=== PATIENT | male | born 1950 | race Caucasian/White ===

== ENCOUNTER 2017-08-30 10:56 | Inpatient (IN) | payer SELFPAY ==
--- NOTE | 2017-08-30 12:58 | CPEKG ---
Heart Rate: 71 RR Interval: 845 P-R Interval: 140 QRSD Interval: 80 QT Interval: 404 QTC Interval: 439 P Morrison: 59 QRS Morrison: 0 T Wave Morrison: 13 EKG Severity - NORMAL ECG - EKG Impression: SINUS RHYTHM Electronically Signed By: Nga Gonzalez 30-Aug-2017 20:44:38
[2017-08-30 13:25] LABS: PLATELET COUNT 235 10^3/uL (150-400)
--- NOTE | 2017-08-30 13:37 | PDCONSULT ---
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 He c/ o fatigue and issues with urination including incontinence at night. He went to see a PCP and was found to have a Cr of 3.0 about one month ago. This acutely jenni to >4 this week and he was sent in per Dr. Cruz of [facility]. He states that at first he thought he was just drinking too much caffeine, however he does not issues with frequent nocturia and difficulty emptying his bladder. No weight loss, non-smoker, denies h/o UTI's, renal stones, or other ROS. He does admit that his BP's have been high over the last week however he has not taken medications for this issue. He denies all NSAID use. Daughter present at bedside. NKDA MEDS: None ROS: Denies 10-point review except as above. PMH: None PSH: Traumatic finger injury requiring surgery several years ago. Social Hx: Lives at home with . Non-smoker, no ETOH or drug use. Family Hx: None, no renal disease. Objective: Temp Pulse Resp BP Pulse Ox 37.4 C 80 17 145/97 H 97 08/30/17 11:15 08/30/17 11:15 08/30/17 11:15 08/30/17 11:15 08/30/17 11:15 Physical exam: Gen: A+O, no distress HEENT: Non-traumatic, MMM Neck: Supple, no thyromegaly CV: RRR, no murmurs or rub RESP: CTA b/l EXT: No edema Skin: No rashes Neuro: Non-focal, moving all extremities Psych: Cooperative, normal affect Imaging: Reportedly mild hydronephrosis with >600ml urine on PVR per US at OSH. Labs: WBC 6.15 10^3/uL (3.80-9.50) 08/30/17 12:55 RBC 3.96 10^6/uL (4.40-6.38) L 08/30/17 12:55 Hgb 10.8 g/dL (13.7-17.5) L 08/30/17 12:55 Hct 32.2 % (40.0-51.0) L 08/30/17 12:55 MCV 81.3 fL (81.5-99.8) L 08/30/17 12:55 MCH 27.3 pg (27.9-34.1) L 08/30/17 12:55 MCHC 33.5 g/dL (32.4-36.7) 08/30/17 12:55 RDW 12.2 % (11.5-15.2) 08/30/17 12:55 Plt Count 235 10^3/uL (150-400) 08/30/17 12:55 MPV 10.1 fL (8.7-11.7) 08/30/17 12:55 Neut % (Auto) 74.4 % (39.3-74.2) H 08/30/17 12:55 Lymph % (Auto) 17.4 % (15.0-45.0) 08/30/17 12:55 [place] % (Auto) 6.3 % (4.5-13.0) 08/30/17 12:55 Eos % (Auto) 1.1 % (0.6-7.6) 08/30/17 12:55 Baso % (Auto) 0.5 % (0.3-1.7) 08/30/17 12:55 Nucleat RBC Rel Count 0.0 % (0.0-0.2) 08/30/17 12:55 Absolute Neuts (auto) 4.57 10^3/uL (1.70-6.50) 08/30/17 12:55 Absolute Lymphs (auto) 1.07 10^3/uL (1.00-3.00) 08/30/17 12:55 Absolute Monos (auto) 0.39 10^3/uL (0.30-0.80) 08/30/17 12:55 Absolute Eos (auto) 0.07 10^3/uL (0.03-0.40) 08/30/17 12:55 Absolute Basos (auto) 0.03 10^3/uL (0.02-0.10) 08/30/17 12:55 Absolute Nucleated RBC 0.00 10^3/uL (0-0.01) 08/30/17 12:55 Immature Gran % 0.3 % (0.0-1.1) 08/30/17 12:55 Immature Gran # 0.02 10^3/uL (0.00-0.10) 08/30/17 12:55 Sodium 141 mEq/L (135-145) 08/30/17 12:55 Potassium 4.9 mEq/L (3.3-5.0) 08/30/17 12:55 Chloride 104 mEq/L (97-110) 08/30/17 12:55 Carbon Dioxide 26 mEq/l (22-31) 08/30/17 12:55 Anion Gap 11 mEq/L (8-16) 08/30/17 12:55 BUN 56 mg/dL (7-23) H 08/30/17 12:55 Creatinine 4.1 mg/dL (0.7-1.3) H 08/30/17 12:55 Estimated GFR 15 08/30/17 12:55 Glucose 101 mg/dL (70-100) H 08/30/17 12:55 Calcium 8.7 mg/dL (8.5-10.4) 08/30/17 12:55 Total Bilirubin 0.5 mg/dL (0.1-1.4) 08/30/17 12:55 AST 26 IU/L (17-59) 08/30/17 12:55 ALT 35 IU/L (21-72) 08/30/17 12:55 Alkaline Phosphatase 114 IU/L (38-126) 08/30/17 12:55 Total Protein 6.8 g/dL (6.3-8.2) 08/30/17 12:55 Albumin 4.0 g/dL (3.5-5.0) 08/30/17 12:55 A/P: The patient is a 66 y/o M with minimal medical history who presents with MADELAINE on probable CKD 2/2 to obstruction most likely BPH. MADELAINE on CKD -patient reports having a normal Cr on labs 1-2 years ago -unclear how long obstruction has been going on, current Cr 4.0 -UA ordered, urine sodium, urine protein:cr -renal US imaging report pending -place bowles -sent PTH -urology consult -consider starting tamsulosin -monitor I/Os, daily labs -keep MAP>65 Hyperkalemia -should improve with bowles and urine output -renal diet -no acute indication for dialysis Anemia -may be 2/2 to longstanding CKD -check iron studies HTN -BP's in the 150's systolic -ordered hydralazine prn -no official diagnosis of HTN yet, however will most likely need CCB due to CKD Will continue to follow, please contact if ?'s #[phone].
[2017-08-30] MEDS ORDERED: ONDANSETRON DISINTEGRATING 4 MG TAB PO PRN (14:57)
[2017-08-30] MEDS ORDERED: ONDANSETRON 4 MG/2 ML VIAL IVP PRN (14:57)
[2017-08-30] MEDS ORDERED: ACETAMINOPHEN 325 MG TAB PO PRN (14:57)
[2017-08-30] MEDS ORDERED: NS 1,000 ML IV SCH (15:00)
--- NOTE | 2017-08-30 17:05 | PDGENHP ---
History and Physical History and Physical: CC: Urinary incontinence and new renal failure HISTORY: This generally very healthy man who lives in [place] the started noticing a few weeks ago nocturnal urinary incontinence. He has not particularly noticed a sensation of a full bladder, nor any discomfort passing urine, hematuria, or slowing of urine stream. However he has also noticed fatigue, loss of appetite, nausea, and ammonia on his breath. He has been eating normally. There has been no swelling, shortness of breath. For a few months now he has cut back dramatically on physical activity which normally includes quite [place] lot [place]. In the last 2 weeks he stopped working due to the fatigue He went a couple weeks ago to see a primary care physician who found high blood pressure and a creatinine of 3 with a history of normal creatinine 1 year ago. His prior blood pressures have all been normal. He was seen by commercial loan officer earlier today who found a creatinine of 4.4. Apparently a renal ultrasound was done at [facility] outpatient center today and showed initial urine volume of 1 L with spontaneous voiding to a volume of 650 postvoid. There is no past history of renal disease, prostate disease, stones or any other urologic disease. He denies any flank pain. He has had no rashes, joint pains or swelling, ocular or mucosal symptoms or other symptoms to suggest a vasculitis. His weight is stable. He has no fevers. There is no family history of any urologic or urinary disease. No family history of renal disease. 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, usually quite active MEDICATIONS: No medicines prior to this but he was prescribed yesterday some Flomax which is not yet picked up PHYSICAL EXAMINATION: Vital Signs: Some mild hypertension otherwise normal Transportation Museum Helper: Sinus rhythm Examination: General: alert, oriented, good mentation, relaxed Skin: warm, dry, good color, no rash HEENT: normal Neck: no mass or jvd Resps: relaxed Lungs: clear breath sounds Heart: regular, no murmur Abdomen: soft, nondistended, nontender, +BS, no mass Upper Extremities: normal Lower Extremities: no edema, warm No Bleeding or bruising Neurologic: normal speech/language, normal 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 representative, no focal weakness IV site: looks normal LABORATORY DATA: CBC showing a moderate microcytic anemia with hemoglobin of 10 with low red blood cell count indicating high likelihood of iron deficiency Chemistry panel here showing creatinine 4.1 with BUN in the 50s, normal potassium and CO2 A PTH was drawn and is 283, with elevated phosphate RADIOLOGY STUDIES: Again and outpatient ultrasound was done earlier today but the patient's daughter has the disc with her we are waiting for that come to the hospital so that we can review it 12 LEAD EKG: Done in the ER, my review of the tracing shows a normal 12 lead EKG ASSESSMENT: # RENAL FAILURE, acuity uncertain but certainly it is progressing quickly and given the likely etiology may be mostly acute, however the PTH levels could potentially indicate a more chronic scenario. Lack of acidosis would argue at least somewhat against much chronic change. * Likely due to urine retention, but cause as yet undetermined * Will certainly want to look at his ultrasound to make sure that he does not have any other sign of other renal disease # URINARY RETENTION, LIKELY CHRONIC, is the most likely cause of the renal failure but this remains to be determined. # HYPERPARATHYROIDISM is most likely due to his renal disease # MICROCYTIC ANEMIA WITH HIGH SUSPICION FOR IRON DEFICIENCY is also new finding , and likely unrelated to the above as he has had no hematuria * This will need further assessment as well At this time we are unable in the ER or with the nursing attempts on the [facility] floor to get a Wilson catheter in place and so will need to get a urologist to attempt placement. This will need to happen tonight due to his renal failure PLANS: -inpatient admission -Wilson placement by urologist home I will call now -follow closely for postobstructive diuresis and replace with IV fluids as necessary -follow recovery of renal function closely -when the ultrasound CD becomes available will look at that with radiology; any other measures based on the findings as indicated -he will probably need to be treated for secondary hyperparathyroidism but this should be reviewed with the nephrology consultants and will see how his renal function recovers with drainage -he will need assessment for the cause of his urinary retention, presumably this is prostatic disease, but will have Urology seeing him and they can do formal assessment -I will order iron studies, and he should at some point see a planning consultant for assessment of iron deficiency I have reviewed the patient's case in detail with Dr. Nga Gonzalez
--- NOTE | 2017-08-30 19:31 | PDMN ---
Medical Necessity Medical necessity: C/M review: Patient meets [place] [id number] Renal failure, acute: Acute and persistent renal failure - acuity uncertain bit it is progressing quickly and gioven the likely etiology, may be mostly acute, urinary retention, likely chronic, hyperparathyroidism likely due to renal disease, microcytic anemia eith high suspicion for iron deficiency - new finding, likely unrelated to above, BUN 56, Cr 4.1, PIH intact level 238.3, creat (PIH intact) 4.0, Phosph (PIH intact) 4.9, requiring Renal consult, planned urology consult for Wilson catheter placement (inability to place Wilson catheter by ED staff or nursing unit staff), IV NS 50 ml/hr. infusion, follow renal function closely. anticipates > 2 MN LOS for ongoing med nec for eval and TX of above.
[2017-08-30] MEDS: TAMSULOSIN HCL 0.4 MG CAP PO SCH (20:01)
[2017-08-30] MEDS: ZOLPIDEM TARTRATE 5 MG TAB PO PRN (21:16)
[2017-08-30] MEDS: HEPARIN 5,000 UNIT/0.5 ML INJ SC SCH (21:16)
--- NOTE | 2017-08-30 22:11 | EDPHY ---
H & P Stated Complaint: ?renal failure/fatigue Time Seen by Provider: 08/30/17 12:45 HPI/ROS: CHIEF COMPLAINT: Elevated creatinine HISTORY OF PRESENT ILLNESS: Patient referred to the emergency department by his head of marketing adometry. He tells me that he has been undergoing evaluation of his kidneys for the last few months. For 3 months he has been experiencing nighttime incontinence. More recently he developed a decreased appetite, nausea , and fatigue. He was referred to Dr. Barber of [facility] because of rising creatinine and he was seen by him yesterday. Blood work was performed and he was told that his creatinine was 4.4. He he had a creatinine of 3.3 on August 15. By his report, he had an initial the 1000 mL of urine in his bladder with 500 mL postvoid residual. He had an ultrasound of his kidneys done today. I do not have these results. No NSAID use. No hematuria. He denies dysuria. He has no history of diabetes. No history of ureterolithiasis. No history of hypertension. REVIEW OF SYSTEMS: A ten point review of systems was performed and is negative with the exception of the items mentioned in the HPI. Past medical history: Ankle pain Past surgical history: Ankle surgery Family history: Negative Social history: He lives in [place]. His daughter accompanies him today. He does not use tobacco products. No alcohol or illicit drugs. 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 General Appearance: Alert. Vital signs reviewed. Blood pressure 145/97. Eyes: Pupils equal and round, no conjunctival injection, no discharge. Anicteric. ENT, Mouth: Mucous membranes are moist, no oropharyngeal erythema or edema. Neck: No lymphadenopathy, supple. Respiratory: Lungs are clear to auscultation; no wheezes, rales, or rhonchi. Cardiovascular: Regular rate and rhythm; no murmur, rub, or gallop. Gastrointestinal: Abdomen is soft and nontender, no masses or organomegaly, bowel sounds normal. Skin: Warm and dry, no rashes on exposed skin, normal color. Back: Nontender to palpation over the thoracolumbar spine. No CVAT. Extremities: No lower extremity edema, no calf tenderness or swelling. Neurological: Alert and oriented. Moving all four extremities easily and equally. Psychiatric: Normal affect. - Personal History Current Tetanus/Diphtheria Vaccine: Yes - Medical/Surgical History Hx Asthma: No Hx Chronic Respiratory Disease: No Hx Diabetes: No Hx Cardiac Disease: No Hx Renal Disease: Yes Hx Cirrhosis: No Hx Alcoholism: No Hx HIV/AIDS: No Hx Splenectomy or Spleen Trauma: No Other PMH: denies - Social History Smoking Status: Never smoked Constitutional: Initial Vital Signs Temperature (C) 37.4 C 08/30/17 11:15 Heart Rate 80 08/30/17 11:15 Respiratory Rate 17 08/30/17 11:15 Blood Pressure 145/97 H 08/30/17 11:15 O2 Sat (%) 97 08/30/17 11:15 O2 Delivery Mode Room Air Allergies/Adverse Reactions: No Known Allergies Allergy (Verified 08/30/17 13:49) Home Medications: Medication Instructions Recorded NK [No Known Home Meds] 08/30/17 Medical Decision Making ED Course/Re-evaluation: Acute renal failure with rising creatinine. Creatinine in the department today is 4.1 with a BUN of 56. He is noted to be anemic with hemoglobin 10.8 hematocrit 32.2. According to his daughter he was recently diagnosed with iron deficiency. Normal potassium. His history sounds as if he has urinary retention. This might account for his renal failure. He was evaluated by Urology in the emergency department. PTH and other studies have been requested. Emergency department nursing staff was unable to pass a Wilson catheter. Blood pressure was elevated. He has no known history of hypertension. He has been stable in the emergency department. He is being admitted to the hospital for further evaluation and treatment. Differential Diagnosis: Considered a differential diagnosis of acute renal failure that includes but is not limited to infection, obstruction, chronic urinary retention, and hypertension. - Data Points Laboratory Results: Laboratory Results 08/30/17 12:55 08/30/17 12:55 08/30/17 08/30/17 08/30/17 13:45 12:55 12:55 WBC RBC Hgb Hct MCV MCH MCHC RDW Plt Count MPV Neut % (Auto) Lymph % (Auto) Cameron % (Auto) Eos % (Auto) Baso % (Auto) Nucleat RBC Rel Count Absolute Neuts (auto) Absolute Lymphs (auto) Absolute Monos (auto) Absolute Eos (auto) Absolute Basos (auto) Absolute Nucleated RBC Immature Gran % Immature Gran # Sodium 141 mEq/L mEq/L (135-145) Potassium 4.9 mEq/L mEq/L (3.3-5.0) Chloride 104 mEq/L mEq/L (97-110) Carbon Dioxide 26 mEq/l mEq/l (22-31) Anion Gap 11 mEq/L mEq/L (8-16) BUN 56 mg/dL H mg/dL (7-23) Creatinine 4.1 mg/dL H mg/dL (0.7-1.3) Estimated GFR 15 Glucose 101 mg/dL H mg/dL (70-100) Calcium 8.7 mg/dL mg/dL (8.5-10.4) Total Bilirubin 0.5 mg/dL mg/dL (0.1-1.4) AST 26 IU/L IU/L (17-59) ALT 35 IU/L IU/L (21-72) Alkaline Phosphatase 114 IU/L IU/L (38-126) Total Protein 6.8 g/dL g/dL (6.3-8.2) Albumin 4.0 g/dL g/dL (3.5-5.0) PTH Intact 238.3 pg/mL H pg/mL (10.8-79.4) Calcium (PTH Intact) 8.5 mg/dL mg/dL (8.5-10.4) Creat (PTH Intact) 4.0 mg/dL H mg/dL (0.7-1.3) Phosph (PTH Intact) 4.9 mg/dL H mg/dL (2.5-4.5) Ur Random Sodium 33 mEq/L mEq/L (30-90) 08/30/17 12:55 WBC 6.15 10^3/uL 10^3/uL (3.80-9.50) RBC 3.96 10^6/uL L 10^6/uL (4.40-6.38) Hgb 10.8 g/dL L g/dL (13.7-17.5) Hct 32.2 % L % (40.0-51.0) MCV 81.3 fL L fL (81.5-99.8) MCH 27.3 pg L pg (27.9-34.1) MCHC 33.5 g/dL g/dL (32.4-36.7) RDW 12.2 % % (11.5-15.2) Plt Count 235 10^3/uL 10^3/uL (150-400) MPV 10.1 fL fL (8.7-11.7) Neut % (Auto) 74.4 % H % (39.3-74.2) Lymph % (Auto) 17.4 % % (15.0-45.0) Cameron % (Auto) 6.3 % % (4.5-13.0) Eos % (Auto) 1.1 % % (0.6-7.6) Baso % (Auto) 0.5 % % (0.3-1.7) Nucleat RBC Rel Count 0.0 % % (0.0-0.2) Absolute Neuts (auto) 4.57 10^3/uL 10^3/uL (1.70-6.50) Absolute Lymphs (auto) 1.07 10^3/uL 10^3/uL (1.00-3.00) Absolute Monos (auto) 0.39 10^3/uL 10^3/uL (0.30-0.80) Absolute Eos (auto) 0.07 10^3/uL 10^3/uL (0.03-0.40) Absolute Basos (auto) 0.03 10^3/uL 10^3/uL (0.02-0.10) Absolute Nucleated RBC 0.00 10^3/uL 10^3/uL (0-0.01) Immature Gran % 0.3 % % (0.0-1.1) Immature Gran # 0.02 10^3/uL 10^3/uL (0.00-0.10) Sodium Potassium Chloride Carbon Dioxide Anion Gap BUN Creatinine Estimated GFR Glucose Calcium Total Bilirubin AST ALT Alkaline Phosphatase Total Protein Albumin PTH Intact Calcium (PTH Intact) Creat (PTH Intact) Phosph (PTH Intact) Ur Random Sodium Medications Given: Heparin Sodium (Porcine) (Heparin Sc Injection) 5,000 unit SC Q8 VERONICA Stop: 02/26/18 21:59 Last Admin: 08/30/17 21:16 Dose: 5,000 unit Sodium Chloride (Ns) 1,000 mls @ 50 mls/hr IV CONT VERONICA Stop: 02/26/18 14:59 Last Admin: 08/30/17 20:02 Dose: 1,000 mls Tamsulosin HCl (Flomax) 0.4 mg PO DAILY VERONICA Stop: 02/26/18 17:14 Last Admin: 08/30/17 20:01 Dose: 0.4 mg Zolpidem Tartrate (Ambien) 5 - 10 mg PO HS PRN PRN Reason: Sleep/Insomnia, use 1st Stop: 02/26/18 14:56 Last Admin: 08/30/17 21:16 Dose: 10 mg Departure - Departure Disposition: [facility] Inpatient Acute Clinical Impression: Acute renal failure Qualifiers: Acute renal failure type: unspecified Qualified Code(s): N17.9 - Acute kidney failure, unspecified Condition: Good
[2017-08-31] MEDS: HEPARIN 5,000 UNIT/0.5 ML INJ SC SCH ×3 (05:09→21:04)
--- NOTE | 2017-08-31 07:20 | SOAPPROG ---
SOAP Progress Note Assessment/Plan: Assessment: #Non-oliguric MADELAINE- obstructive uropathy -bilateral hydro on u/s, suspected BPH. Will repeat u/s tomorrow to ensure decompressed and that obstruction not higher up. -Cr was 3 a month ago, 4.1 on admit-> now 3.5 -unclear where Cr will settle out given long duration of obstruction (suspect he does have some degree of CKD) -urology to see, bowles in, started tamsulosin -continue IVF-- I will increase rate to 100 cc/ hour -has some bloody urine-- monitor closely as may need continuous bladder irrigation if worsens #anemia -may have some CKD component -iron stores pending #hyperkalemia -improved with bowles -keep on renal diet for now #MBD of CKD -PTH high- expected with CKD--- will likely start calcitriol soon -phos at goal- not on binder I discussed with Dr. Stephen I am compensation coordinator for weekend Cleopatra Marquez MD [facility] pager [phone] 08/31/17 09:50 Subjective: Feels better today- urine bloody but no large clots. Feels weak but no sob, vomiting, cp. Discussed need for close urology f/u, continued bowles. IVF ongoing. Objective: Vital Signs Temp Pulse Resp BP Pulse Ox 36.5 C 73 16 149/99 H 97 08/31/17 04:49 08/31/17 04:49 08/31/17 04:49 08/31/17 04:49 08/31/17 04:49 Laboratory Results 08/31/17 04:42 08/30/17 08/31/17 09/01/17 05:59 05:59 05:59 Intake Total 550 Output Total 4900 Balance -4350 Physical Exam - Physical Exam General Appearance: alert, no apparent distress EENT: other (mmm) Neck: supple Respiratory: lungs clear Cardiac/Chest: regular rate, rhythm, other (no rub) Abdomen: non-tender, soft Male Genitalia: other (bowles blood tinged urine, small clots) Skin: warm/dry Extremities: other (no edema) Neuro/Psych: alert, oriented x 3 ICD10 Worksheet Patient Problems: Problems Problem Status Onset Acute renal failure Acute
[2017-08-31] MEDS: TAMSULOSIN HCL 0.4 MG CAP PO SCH (09:01)
[2017-08-31] MEDS: traMADol 50 MG TAB PO PRN ×2 (10:12→19:19)
--- NOTE | 2017-08-31 12:56 | SOAPPROG ---
SOAP Progress Note Assessment/Plan: Assessment: Urinary retention - s/p bowles Gross hematuria- likely due to compression. Mild, resolving ARF/CRI improved Plan: Hand irrigate bowles PRN. No need for CBI at this time. Will need outpatient urodynamics to see if bladder still functions Keep bowles indefinitely. 08/31/17 12:54 Subjective: Feels weak and tired. no pain. no sob. No nausea or vomiting Objective: Vital Signs Temp Pulse Resp BP Pulse Ox 36.7 C 93 16 135/97 H 94 08/31/17 12:31 08/31/17 12:31 08/31/17 12:31 08/31/17 12:31 08/31/17 12:31 Laboratory Results 08/31/17 04:42 08/30/17 08/31/17 09/01/17 05:59 05:59 05:59 Intake Total 550 1000 Output Total 4900 1050 Balance -4350 -50 Physical Exam - Physical Exam General Appearance: alert, no apparent distress Respiratory: No respiratory distress Male Genitalia: other (bowles in place with pink urine, small clots) Skin: normal color, warm/dry Extremities: non-tender Neuro/Psych: alert, normal mood/affect, oriented x 3 ICD10 Worksheet Patient Problems: Problems Problem Status Onset Acute renal failure Acute
--- NOTE | 2017-08-31 13:55 | HOSPPROG ---
Hospitalist Progress Note Assessment/Plan: The patient is a a 66-year-old male who was admitted for postobstructive uropathy causing bilateral hydronephrosis and acute kidney injury. ASSESSMENT/PLAN: MADELAINE, likely on CKD unk stage Post obstructive uropathy, likely 2/2 to BPH - s/p Wilson catheter placement B/l hydronephrosis Microcytic anemia, likely secondary to CKD Hyperparathyroidism, likely secondary to CKD -maintain Wilson Cath. -Continue to monitor I/O. -Recheck renal function in AM. -Check iron panel/ferritin in AM. -Bladder scan in AM to ensure resolution of bladder outlet obstruction -discussed case with right of way clearer Dr. Lim and urologist Dr. Holder. -patient will need outpatient follow-up with Nephrology and with Urology. He will likely be sent home with Wilson catheter. He will need education from nursing on how to care for his catheter. VTE prophylaxis: None needed. Ambulatory. Code Status: Full code Status: Inpatient for greater than 2 midnight stay. Disposition: Med surg with discharge anticipated tomorrow This patient is new to me. Reviewed patient's chart/records for this visit. ____ Subjective: Patient feels better today. He has some tenderness/pain and bladder area. His Wilson catheter continues to drain bloody urine. He feels generally weak and tired. Objective: Vital Signs Temp Pulse Resp BP Pulse Ox 36.7 C 93 16 135/97 H 94 08/31/17 12:31 08/31/17 12:31 08/31/17 12:31 08/31/17 12:31 08/31/17 12:31 Laboratory Results 08/31/17 04:42 08/30/17 08/31/17 09/01/17 05:59 05:59 05:59 Intake Total 550 1000 Output Total 4900 1050 Balance -4350 -50 Physical Exam: General: The patient is a male who is alert and in no acute distress. HEENT: normocephalic, extraocular movements intact, conjunctivae clear. Mucous membranes moist. Neck: trachea midline, no visible masses. Abd: soft and nondistended. Mild tenderness suprapubic area. Musculoskeletal: Normal muscle tone/bulk. Neuro: cranial nerves II XII grossly intact. Intact gross motor and sensory function. Psych: Appropriate mood and appropriate affect. Skin: No pallor. No petechiae. Heme/lymph: No peripheral edema at bilateral lower leg. : Wilson catheter in place. Draining deep red colored urine. Labs/Imaging/Other Tests: Personally reviewed/interpreted. ICD10 Worksheet Patient Problems: Problems Problem Status Onset Acute renal failure Acute
[2017-08-31] MEDS ORDERED: METOPROLOL TARTRATE 5 MG/5 ML INJ IVP ONE (16:45)
--- NOTE | 2017-08-31 17:58 | GCON ---
[f rep st] CONSULTATION DATE OF CONSULTATION: 08/30/2017 REQUESTING PHYSICIAN: Hospitalist services. REASON FOR REQUEST: Urinary retention, unable to place a Wilson. HISTORY OF PRESENT ILLNESS: Mr. Sandoval is a 66-year-old gentleman, who lives in the [facility], who was noted to have an increase of his creatinine. He states that he has also had a several-month history of feeling fatigued, somewhat nauseous, and just not quite right. He also states that he cortez s been having nocturnal enuresis, slow stream, going frequently, and not always completely emptying h is bladder. An ultrasound was obtained, which demonstrated bilateral hydronephrosis and significant postvoid residual. The patient was noted to have a creatinine of 4.4, and he therefore was referred for admission. Multiple attempts at placing a Wilson catheter were unsuccessful. Reasons for this ar e not clear. The patient denies any prior history of prostate disease. No history of prostate surge ry. No history of radiation or any other risk factors that would make it difficult to place a Wilson. PAST MEDICAL HISTORY: Ankle injury. PAST SURGICAL HISTORY: 1. Ankle surgery. 2. Finger surgery. FAMILY HISTORY: Reviewed and is unremarkable. SOCIAL HISTORY: Reviewed. No tobacco, alcohol, or drug abuse. HOME MEDICATIONS: None. REVIEW OF SYSTEMS: Otherwise negative. PHYSICAL EXAMINATION: VITAL SIGNS: He is afebrile, with stable vital signs. GENERAL: Alert, orien magdalena x4, in no apparent distress. HEENT: Head is normocephalic, atraumatic. Eyes, ears, nose, and t hroat are within normal limits. NECK: Supple, with midline trachea. RESPIRATORY: He has no increa sed respiratory effort. HEART: Regular. ABDOMEN: Soft, protuberant, nontender, nondistended. Malik dder is palpable just below the umbilicus. GENITOURINARY: Genital examination reveals normal phallu s and bilateral descended testes. EXTREMITIES: No clubbing, cyanosis, or edema. LABORATORY VALUES: Reviewed and summarized in the chart. IMAGING STUDIES: Report from ultrasound was reviewed. IMPRESSION: 1. Urinary retention, likely secondary to BPH, possible neurogenic bladder. 2. Acute renal failure, likely secondary to the above. 3. Bilateral hydronephrosis, likely secondary to outlet obstruction. 4. Inability to place Wilson catheter. PLAN: I placed a Wilson catheter at the bedside using a 16-Zambian coude catheter. This was complicat ed by the fact that he has had multiple attempts. There were, however, no indications that he had so me sort of stricture, bladder neck contracture, etc. He had over a liter of clear urine output. I mey styles discussed with him at length the followup necessary once his kidney has recovered as much as it p ossibly will. This would include urodynamic studies as well as cystoscopy in anticipation of possibl e TURP; however, this would not be indicated should his bladder not be functional, as it is unlikely to be successful. I would not recommend any further intervention urologically at this time, other th an starting tamsulosin, which has already been done; however, in my experience, more often than not, these folks need surgery eventually. This should be deferred until he is completely resolved and can have a thorough outpatient workup as above. /[id number]/MODL
[2017-08-31] MEDS: amLODIPine BESYLATE 5 MG TAB PO SCH (18:09)
[2017-08-31] MEDS: NS 1,000 ML IV SCH (18:09)
--- NOTE | 2017-08-31 19:22 | ASMTCMCOM ---
CM Note CM Note Notes: Reviewed chart, spoke with Dr. Stephen and TERESA Talbert regarding discharge plan of care, pt's progress. Pt admitted for acute renal failure and urinary retention. No remarkable history. 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 Per Dr. Stephen, pt will likely discharge home with a bowles catheter. Other discharge needs remain unclear at this time. CM will continue to follow. Current Discharge Plan: To be determined Date Signed: 08/31/2017 07:21 PM Electronically Signed By:Kyara Noguera RN
[2017-08-31] MEDS: ZOLPIDEM TARTRATE 5 MG TAB PO PRN (21:04)
[2017-09-01] MEDS: NS 1,000 ML IV SCH ×2 (05:06→14:44)
[2017-09-01] MEDS: HEPARIN 5,000 UNIT/0.5 ML INJ SC SCH ×3 (05:06→22:00)
--- NOTE | 2017-09-01 07:17 | SOAPPROG ---
SOAP Progress Note Assessment/Plan: Assessment: #Non-oliguric MADELAINE- obstructive uropathy -bilateral hydro on u/s, suspected BPH. Repeat u/s shows improved hydro (still mild) with thickened bladder wall as expected with BPH. -Cr was 3 a month ago, 4.1 on admit-> now 2.8 -unclear where Cr will settle out given long duration of obstruction (suspect he does have some degree of CKD) -urology following- bowles in, started tamsulosin -bloody urine- still a bit more than I would like before d/c him given risk clot --- continue IVF and monitoring. I don't think needs CBI at this point but needs continued monitoring and I think this needs to improve more before d/c him. -discussed need for urology and renal f/u as outpt- he lives in [place] and wants to come here for f/u. Will need labs later in week (can get locally and fax to us). Will arrange clinic f/u with us. #anemia -may have some CKD component -iron stores adequate -no need for Epo as this point #hyperkalemia -improved with bowles -keep on renal diet for now-- can liberalize doon #MBD of CKD -PTH high- expected with CKD--- will likely start calcitriol soon -phos at goal- not on binder I discussed with Dr. Stephen I am intelligence applications for weekend Cleopatra Marquez MD [facility] pager [phone] 09/01/17 08:56 Subjective: Feeling better, appetite improved today and wants to eat breakfast. No vomiting , sob. Urine still bloody but no large clots noted. Objective: Vital Signs Temp Pulse Resp BP Pulse Ox 37.3 C 81 16 164/104 H 95 09/01/17 05:01 09/01/17 05:01 09/01/17 05:01 09/01/17 05:01 09/01/17 05:01 Laboratory Results 09/01/17 04:35 08/31/17 09/01/17 09/02/17 05:59 05:59 05:59 Intake Total 550 4071 Output Total 4900 5765 Balance -2070 -9390 Physical Exam - Physical Exam General Appearance: alert, no apparent distress, other (looks better today) EENT: other (mmm) Cardiac/Chest: regular rate, rhythm Male Genitalia: other (bowles with bloody urine, no large clots in bag) Skin: warm/dry Extremities: other (no edema) Neuro/Psych: alert, oriented x 3 ICD10 Worksheet Patient Problems: Problems Problem Status Onset Acute renal failure Acute
--- NOTE | 2017-09-01 09:24 | HOSPPROG ---
Hospitalist Progress Note Assessment/Plan: The patient is a a 66-year-old male who was admitted for postobstructive uropathy causing bilateral hydronephrosis and acute kidney injury. ASSESSMENT/PLAN: MADELAINE, likely on CKD unk stage - improving Post obstructive uropathy, likely 2/2 to BPH - s/p Wilson catheter placement Hematuria, 2/2 Wilson insertion trauma B/l hydronephrosis, improving Microcytic anemia Hyperparathyroidism, likely secondary to CKD -maintain Wilson Cath. -Continue to monitor I/O. -Recheck renal function in AM. -Pt does not appear to have overt iron deficiency. -discussed case with hand stamper Dr. Lim. -patient will need outpatient follow-up with Nephrology and with Urology. He will likely be sent home with Wilson catheter. He will need education from nursing on how to care for his catheter. VTE prophylaxis: None needed. Ambulatory. Code Status: Full code Status: Inpatient for greater than 2 midnight stay. Disposition: Med surg with discharge anticipated tomorrow ____ Subjective: Pt feels ok today. C/o body aches from uncomfortable hospital bed. He has been ambulating. Tramadol is controlling his pain. Objective: Vital Signs Temp Pulse Resp BP Pulse Ox 37.1 C 89 14 142/93 H 94 09/01/17 08:00 09/01/17 08:00 09/01/17 08:00 09/01/17 08:00 09/01/17 08:00 Laboratory Results 09/01/17 04:35 08/31/17 09/01/17 09/02/17 05:59 05:59 05:59 Intake Total 550 4071 250 Output Total 4900 5775 Balance -4350 -1704 250 General: The patient is a male who is alert and in no acute distress. HEENT: normocephalic, extraocular movements intact, conjunctivae clear, no lesions on face. Nares and oral mucosa pink and moist. Neck: trachea midline, no visible masses, no external lesions. Resp: unlabored breathing. Abd: soft and nondistended. Musculoskeletal: Normal muscle tone bulk. Neuro: cranial nerves II XII grossly intact. Intact gross motor and sensory function. Psych: appropriate mood/affect. Skin: no pallor. : No suprapubic tenderness. +Wilson catheter noted with red colored urine draining. No VA tenderness. Renal US - persistent but improved b/l hydronephrosis. - Pending Discharge Pending Discharge Within 24 Hours: Yes Pending Discharge Date: 09/02/17 Pending Discharge Time: 11:00 ICD10 Worksheet Patient Problems: Problems Problem Status Onset Acute renal failure Acute
[2017-09-01] MEDS: amLODIPine BESYLATE 5 MG TAB PO SCH (09:40)
[2017-09-01] MEDS: TAMSULOSIN HCL 0.4 MG CAP PO SCH (09:41)
[2017-09-01] MEDS: traMADol 50 MG TAB PO PRN ×2 (09:41→17:56)
[2017-09-01] MEDS ORDERED: METOPROLOL TARTRATE 5 MG/5 ML INJ IVP PRN (10:44)
[2017-09-01] MEDS: LABETALOL HCL 5 MG/ML 20 ML MDV IVP PRN (13:42)
[2017-09-01] MEDS: ZOLPIDEM TARTRATE 5 MG TAB PO PRN (22:01)
[2017-09-02] MEDS: HEPARIN 5,000 UNIT/0.5 ML INJ SC SCH ×2 (05:19→15:04)
[2017-09-02] MEDS: TAMSULOSIN HCL 0.4 MG CAP PO SCH (09:36)
[2017-09-02] MEDS: amLODIPine BESYLATE 5 MG TAB PO SCH (09:40)
[2017-09-02] MEDS: NS 1,000 ML IV SCH ×2 (11:13→20:44)
[2017-09-02] MEDS: traMADol 50 MG TAB PO PRN ×2 (11:26→20:53)
[2017-09-02] MEDS: LABETALOL HCL 5 MG/ML 20 ML MDV IVP PRN (11:27)
--- NOTE | 2017-09-02 15:46 | SOAPPROG ---
SOAP Progress Note Assessment/Plan: Assessment: #Non-oliguric MADELAINE- obstructive uropathy -bilateral hydro on u/s, suspected BPH. Repeat u/s shows improved hydro (still mild) with thickened bladder wall as expected with BPH. -Cr was 3 a month ago, 4.1 on admit-> now 2.4 -unclear where Cr will settle out given long duration of obstruction (suspect he does have some degree of CKD) -urology following- bowles in, started tamsulosin -bloody urine-- still bloody today but improved, no large clots noted -he is requesting to stay tonight as not feeling quite strong enough, notes some pain in prostate/bladder. -discussed need for urology and renal f/u as outpt- he lives in [place] and wants to come here for f/u. Will need labs later in week (can get locally and fax to us vs here at [facility]). Will arrange clinic f/u with us- appears insurance may be issue and I discussed with Dr. Stephen that we have financial assistance paperwork he can fill out and that I still need to see him. I have given him my card/contact info. #anemia -may have some CKD component -iron stores adequate -no need for Epo as this point #hyperkalemia -improved with bowles, IVF #HTN -he reports BP not checked for a few years prior to admit so unclear where baseline was-- no history of HTN -started amlodipine, can add in doxazosin as well. Ok to allow to run a bit higher during MADELAINE recovery phase- goal 120s-150s for now and we can titrate meds further as outpt #MBD of CKD -PTH high- expected with CKD--- will likely start calcitriol soon -phos at goal- not on binder I discussed with Dr. Stephen I am immigration lawyer for weekend Cleopatra Marquez MD [facility] pager [phone] 09/02/17 15:48 Subjective: Feels tired this afternoon. BP running 120s-160s-- notes no history of HTN but has not checked BP in a few years prior to admit. Urine still bloody but improving, no large clots. Some spasms in bladder/rectum. Ate ok earlier today. Objective: Vital Signs Temp Pulse Resp BP Pulse Ox 36.9 C 88 17 128/72 H 96 09/02/17 15:28 09/02/17 15:28 09/02/17 15:28 09/02/17 15:28 09/02/17 15:28 Laboratory Results 09/02/17 04:26 09/01/17 09/02/17 09/03/17 05:59 05:59 05:59 Intake Total 4078 6311 570 Output Total 3708 6102 1000 [facility] -8684 -1543 -430 Physical Exam - Physical Exam General Appearance: alert, no apparent distress EENT: pharynx normal Neck: supple Respiratory: lungs clear Cardiac/Chest: regular rate, rhythm, other Male Genitalia: other (bowles bloody urine but no large clots, clearing some) Skin: warm/dry Extremities: other (no edema) Neuro/Psych: alert, normal mood/affect, oriented x 3 ICD10 Worksheet Patient Problems: Problems Problem Status Onset Acute renal failure Acute
--- NOTE | 2017-09-02 16:38 | ASMTCMCOM ---
CM Note CM Note Notes: Spoke with pt's nurse regarding d/c needs. Pt is struggling with Wilson issues and still has blood in his urine. D/C needs unclear at this time. CM will follow up tomorrow. Date Signed: 09/02/2017 04:37 PM Electronically Signed By:LEONIE Vora
--- NOTE | 2017-09-02 16:51 | HOSPPROG ---
Hospitalist Progress Note Assessment/Plan: The patient is a a 66-year-old male from [place] who was admitted for postobstructive uropathy causing bilateral hydronephrosis and acute kidney injury. ASSESSMENT/PLAN: MADELAINE, likely on CKD unk stage - improving Post obstructive uropathy, likely 2/2 to BPH - s/p Wilson catheter placement Hematuria, 2/2 Wilson insertion trauma- improving slowly B/l hydronephrosis, improving Microcytic anemia Hyperparathyroidism, likely secondary to CKD -started amlodipine earlier in admission. Adding low dose terazosin. Warned pt about potential AE of orthostatic hypotension. Dose may be titrated up in future. -maintain Wilson Cath. -Continue to monitor I/O. -Recheck renal function in AM. -Pt does not appear to have overt iron deficiency. -discussed case with chief of production Dr. Lim. She would like for him to get repeat labs in about 1 week to ensure that Cr is improving. She agrees to manage BP if needed. -patient will need outpatient follow-up with Nephrology and with Urology. He will be sent home with Wilson catheter. He will need education from nursing on how to care for his catheter. -D/w Urologist Dr. Holder - instructed pt to call tomorrow make an appt w/ him at [facility] for this . VTE prophylaxis: None needed. Ambulatory. Code Status: Full code Status: Inpatient for greater than 2 midnight stay. Disposition: Med surg with discharge anticipated tomorrow. Patient plans to stay w/ his son in [place] and FU w/ specialists mentioned above. ____ Subjective: Today pt felt well in the AM but he was feeling worse in the afternoon. +body aches, increased fatigue. He is a bit nervous about having to leave w/ a Wilson catheter. Objective: Vital Signs Temp Pulse Resp BP Pulse Ox 36.9 C 88 17 128/72 H 96 09/02/17 15:28 09/02/17 15:28 09/02/17 15:28 09/02/17 15:28 09/02/17 15:28 Laboratory Results 09/02/17 04:26 09/01/17 09/02/17 09/03/17 05:59 05:59 05:59 Intake Total 4074 8593 570 Output Total 3537 3372 1000 Balance -1704 -1543 -430 General: The patient is a male who is alert and in no acute distress. HEENT: normocephalic, extraocular movements intact, conjunctivae clear, no lesions on face. Nares and oral mucosa pink and moist. Neck: trachea midline, no visible masses, no external lesions. Resp: unlabored breathing. Abd: soft and nondistended. Musculoskeletal: Normal gait. Neuro: cranial nerves II XII grossly intact. Intact gross motor and sensory function. Psych: appropriate mood/affect. Skin: no pallor. : Wilson catheter in place, draining red urine that appears a little more clear today. ICD10 Worksheet Patient Problems: Problems Problem Status Onset Acute renal failure Acute
[2017-09-02] MEDS: ZOLPIDEM TARTRATE 5 MG TAB PO PRN (20:53)
[2017-09-02] MEDS ORDERED: TERAZOSIN HCL 1 MG CAP PO SCH (21:00)
[2017-09-03] MEDS: NS 1,000 ML IV SCH (06:20)
[2017-09-03] MEDS: TAMSULOSIN HCL 0.4 MG CAP PO SCH (10:11)
[2017-09-03] MEDS: amLODIPine BESYLATE 5 MG TAB PO SCH (10:12)
--- NOTE | 2017-09-03 11:25 | SOAPPROG ---
SOAP Progress Note Assessment/Plan: Assessment: 66 y/o M with obstructive uropathy. #Non-oliguric MADELAINE- obstructive uropathy -bilateral hydro on u/s, suspected BPH. Repeat u/s shows improved hydro (still mild) with thickened bladder wall as expected with BPH. -Cr was 3 a month ago, 4.1 on admit-> now 2.1 -likely has some CKD and unclear baseline Cr -urology following- bowles in, started tamsulosin will obtain outpt f/u -renal f/u as outpt, working with case management #anemia -may have some CKD component -iron stores adequate #hyperkalemia -improved with bowles, IVF #HTN -still elevated on amlodipine, currently getting IV labetalol -may d/c on 10mg amlodipine for goal <140/90 -will titrate further as outpt #MBD of CKD -PTH high- expected with CKD--- will likely start calcitriol outpt -phos at goal- not on binder 09/03/17 11:24 Subjective: Ready for discharge. Bowles in place and improving. Objective: Vital Signs Temp Pulse Resp BP Pulse Ox 36.7 C 88 16 146/102 H 95 09/03/17 08:44 09/03/17 08:44 09/03/17 08:44 09/03/17 10:12 09/03/17 08:44 Laboratory Results 09/03/17 04:00 09/02/17 09/03/17 09/04/17 05:59 05:59 05:59 Intake Total 4607 670 1100 Output Total 6150 6150 950 Balance -1543 -7767 150 Physical Exam - Physical Exam General Appearance: WD/WN, alert, no apparent distress EENT: PERRL/EOMI Neck: non-tender, full range of motion, supple Respiratory: lungs clear, normal breath sounds Cardiac/Chest: normal peripheral pulses, regular rate, rhythm Abdomen: normal bowel sounds, non-tender, soft Back: Normal inspection Skin: normal color Extremities: normal range of motion, non-tender Neuro/Psych: alert, normal mood/affect, oriented x 3 ICD10 Worksheet Patient Problems: Problems Problem Status Onset Acute renal failure Acute
--- NOTE | 2017-09-03 12:09 | PDDCSUM ---
Discharge Summary Discharge Summary: DISCHARGE SUMMARY FOLLOW-UP ITEMS: Follow-up creatinine BUN and lytes next week at [facility] DATE OF ADMISSION: 08/30/2017 DATE OF DISCHARGE: 09/03/2017 DISCHARGE DIAGNOSES: 1. Nonoliguric acute kidney injury 2. Suspected chronic kidney disease stage 3 3. Acute obstructive uropathy with BPH and acute hydronephrosis 4. Anemia of chronic kidney disease 5. Acute hyperkalemia 6. Chronic hypertension 7. Chronic left ankle pain CONSULTATIONS: Nephrology, Urology PROCEDURES / IMAGING: Abdominal ultrasound demonstrating thickened urinary bladder wall as well as bilateral hydronephrosis status post Wilson catheter placement CHIEF COMPLAINT: Urinary incontinence SUBJECTIVE: Patient is feeling well at time of discharge, he has no flank tenderness, no lower extremity edema PHYSICAL EXAM ON DISCHARGE: Systolic blood pressure 130-150, heart rate 90, afebrile overnight, satting on room air, no lower extremity edema, alert awake oriented x3, Wilson catheter in place, Pankaj-Aid red urine LABS ON DISCHARGE: Creatinine 2.1, serum bicarbonate 24, potassium 3.9, serum sodium 139, BUN 28, PTH 238, albumin 3.2, corrected calcium 8.6, phosphorus 3.6, iron 115, TIBC 256 , iron sat 45% HOSPITAL COURSE BY PROBLEM: 1. The patient presented with a non oliguric acute kidney injury secondary to obstructive uropathy from underlying suspected BPH and resultant bilateral hydronephrosis on abdominal ultrasound. Wilson catheter was placed to relieve lower urinary tract obstruction, and abdominal ultrasound demonstrated improved but still mild hydronephrosis with thickened bladder wall. These the radiographic findings that would be expected with underlying BPH and obstructive uropathy. His creatinine level was as high as 4.1, and approximately 1 month ago it was 3.0. With relief of his lower urinary tract obstruction, his creatinine level continued downtrend and was 2.1 at time of discharge. He was initiated on tamsulosin 0.4 mg and will follow up with Dr. Holder from Urology for urodynamic studies to determine how and when to remove the Wilson catheter as well as any further urologic prostate intervention. We suspect that he likely does have an element of chronic kidney disease stage 3 with an unclear baseline, with clear acute uropathy and acute kidney injury on this presentation requiring urgent Wilson catheterization and relief. 2. Anemia of chronic kidney disease. Patient's iron stores demonstrate that there adequate, discharge hemoglobin is 10.8, continue monitor as an outpatient. 3. Stage 3 chronic kidney disease. Patient will require ongoing bone mineral density monitoring and with an elevated PTH level he may require calcitriol as an outpatient. This will be followed up at [facility]. 4. Hypertension. Most likely chronic secondary to chronic kidney disease, he was initiated on amlodipine and this can be adjusted as an outpatient. 5. Acute hyperkalemia. Improved with IV fluids and improvement in renal function. 6. Chronic ankle pain. Patient was continued on tramadol at his home dosage, will be continued as an outpatient. DISCHARGE MEDICATIONS: Please see official discharge medication reconciliation sheet in chart , continue all home medications with the addition of amlodipine 5 mg daily, tamsulosin 0.4 mg daily, refill of tramadol for 1 week provided. DISCHARGE INSTRUCTIONS: Please follow up with primary care provider for outpatient pain management and blood pressure monitoring, follow-up with [facility] next week as scheduled, follow up with Urology next week as scheduled, have lab work performed prior to her follow-up appointments and faxed to the appropriate providers. TIME SPENT: Greater than 30 minutes were spent on direct patient care, as well as discharge planning and preparation.
[2017-09-03 12:22] VITALS: BP 157/108
--- NOTE | 2017-09-03 12:39 | ASMTLACE ---
LACE Length of stay for Answers: 3 days current admission Acuity / Level of Answers: Yes Care: Did the patient have an inpatient admission? Comorbidities - select Answers: Mild liver or renal all that apply disease # of Emergency department Answers: 1-2 visits in the last 6 months Score: 9 Date Signed: 09/03/2017 12:38 PM Electronically Signed By:Bess Holloway RN
--- NOTE | 2017-09-03 12:43 | ASMTCMCOM ---
CM Note CM Note Notes: Chart reviewed. S/P BPH with MADELAINE secondary to urinary retention. Discussed patient with Benjamín Mckee. Medically cleared to dc home independently with family support and bowles in place. He has f/u appointments with urology and oncology. No needs at this time identified but CM available should other needs arise. Plan: Home with family support. Date Signed: 09/03/2017 12:42 PM Electronically Signed By:Bess Holloway RN
== END 2017-09-03 13:47 | disposition home or self-care (01) | DRG 683 ==
LOC: OBSVTOIN 14:57 → F1N 16:17
PROVIDERS: ADMIT Internal Medicine; ATTEND Internal Medicine
PROC: 0T9B70Z Drainage of Bladder with Drainage Device, Via Natural or Artificial Opening (ICD-10-PCS; principal; 2017-08-31)
DX: N17.8 Other acute kidney failure (principal); N13.8 Other obstructive and reflux uropathy; I12.9 Hypertensive chronic kidney disease with stage 1 through stage 4 chronic kidney disease, or unspecified chronic kidney disease; N18.3 Chronic kidney disease, stage 3 (moderate); N40.1 Benign prostatic hyperplasia with lower urinary tract symptoms; D63.1 Anemia in chronic kidney disease; N13.30 Unspecified hydronephrosis; E87.5 Hyperkalemia; M25.572 Pain in left ankle and joints of left foot; G89.29 Other chronic pain; N25.81 Secondary hyperparathyroidism of renal origin; D50.9 Iron deficiency anemia, unspecified
CPT/HCPCS: J1644